=== PATIENT | female | born 1975 | race Caucasian/White ===

== ENCOUNTER 2016-11-02 14:38 | Emergency (ER) | payer MEDICARE, OTHER ==
[~2016-11-02 14:38] MED LIST: ABILIFY5 PO; B121000P IM; CONCERTA18 MG PO; CONCERTA36 PO; COQ10100 MG OR; CREON12000 UNT PO; CYANO1000T PO; DEPAKOT500 PO; DIABETA5 PO; DOXEPIN HCL150 MG PO; GLUCPH PO; HORMONE IM; LOM PO; LUNESTA3 MG PO; MAGNESIUM OTC PO; MIRAPEX250 PO; OPIUM TINCTURE OR; PR25 PO; PREMARIN PO; PRILOSEC40 MG PO; PRISTIQ100 MG PO; PRISTIQ50 MG PO; PROBIOTIC; PROSOM 2 MG TAB2 MG PO; PROZAC PO; REST15 PO; TRANXENE 7.5 M7.5 MG OR; TRAZ50 PO; TRAZODONE300 MG PO; V80 PO; VALIUM10 MG PO; VITE PO; ZOL100 PO; ZOL50 PO; ZOLOFT25 MG PO; [UNRECOGNIZED DRUG - OTHER] PO
[2016-11-02 14:55] LABS: WBC (NOT ORDERED) (RFLEX) 0 (0-5)
[2016-11-02 15:00] LABS: BASOPHILS 0.1 %; BASOPHILS ABSOLUTE 0.01 10/3/uL (0.0-0.16); EOSINOPHILS 3.3 %; EOSINOPHILS ABSOLUTE 0.24 10/3/uL (0.0-0.53); ER CBC TAT 0 Hrs 07 Mins; HEMATOCRIT 35.9 % (36.0-48.0); HEMOGLOBIN 12.1 g/dL (12.0-16.0); IMMATURE GRANULOCYTES 0.4 %; IMMATURE GRANULOCYTES ABSOLUTE 0.03 10/3/uL (0.0-0.11); LYMPHOCYTES 26.9 %; LYMPHOCYTES ABSOLUTE 1.98 10/3/uL (0.67-4.30); MEAN CORPUS HGB CONC 33.7 g/dL (32.0-36.0); MEAN CORPUSCULAR HEMOGLOB 28.3 pg (26.0-34.0); MEAN CORPUSCULAR VOLUME 83.9 fL (80-100); MEAN PLATELET VOLUME 9.4 fL (9.2-13.0); MONOCYTES 4.1 %; NEUTROPHILS 65.2 %; PLATELET COUNT 300 10/3/uL (150-400); RBC DISTRIBUTION WIDTH 13.3 % (12.0-16.0); RED CELL COUNT 4.28 10/6/uL (4.0-5.6); WHITE BLOOD CELLS 7.4 10/3/uL (4.5-10.5)
[2016-11-02 15:02] LABS: MANUAL DIFF NO %
[2016-11-02 15:15] LABS: ASCORBIC ACID (UR NOT ORDER) NEG (NEG); BILIRUBIN, URINE NEGATIVE (NEG); ER URINALYSIS TAT 0 Hrs 22 Mins; KETONE, URINE NEGATIVE (NEG); LEUKOCYTE ESTERASE(NOT OR NEG (NEG); NITRITE (URINE) NEG (NEG)
[2016-11-02 15:15] LABS: ALBUMIN 3.8 G/DL (3.5-5.0); ALKALINE PHOSPHATASE 57 U/L (45-117); BUN (BLOOD UREA NITROGEN) 10 MG/DL (6-23); CALCIUM, SERUM 8.9 MG/DL (8.5-10.4); CHLORIDE, SERUM 108 MMOL/L (96-112); CO2 (CARBON DIOXIDE) 27 MMOL/L (24-34); CREATININE 0.68 MG/DL (0.55-1.02); GFR AFRICAN AMERICAN 126 ML/MIN (>=60); GFR NON AFRICAN AMERICAN 109 ML/MIN (>=60); GLOBULIN 3.7 G/DL (2.5-4.1); GLUCOSE, SERUM 78 MG/DL (60-99); POTASSIUM, SERUM 3.8 MMOL/L (3.5-5.3); SGOT(AST) 19 U/L (5-40); SGPT(ALT) 27 U/L (5-65); SODIUM, SERUM 142 MMOL/L (135-148); TOTAL BILIRUBIN 0.3 MG/DL (0-1.2); TOTAL PROTEIN 7.5 G/DL (6.0-8.5)
== END 2016-11-02 17:26 | disposition home or self-care (01) ==
LOC: ER 14:38
PROVIDERS: Hospitalist
DX: K59.00 Constipation, unspecified (principal); Z90.710 Acquired absence of both cervix and uterus; Z88.2 Allergy status to sulfonamides; Z88.1 Allergy status to other antibiotic agents; Z88.0 Allergy status to penicillin; Z88.8 Allergy status to other drugs, medicaments and biological substances; Z91.040 Latex allergy status; Z79.899 Other long term (current) drug therapy
CPT/HCPCS: 74176; 80053; 81001; 83690; 85025; 96372; 99284; J2550